=== PATIENT | female | born 1940 | race Caucasian/White ===

== ENCOUNTER 2017-09-27 20:48 | Emergency (ER) | payer MEDICARE, BC ==
[2017-09-27] MEDS ORDERED: KETOROLAC 30 MG/ML 1 ML VIAL IVP STA (21:35)
[2017-09-27] MEDS ORDERED: LIDOCAINE 5% PATCH TOPICAL STA (21:35)
[2017-09-27] MEDS ORDERED: methylPREDNISolone SOD SUCCI 125 MG/2 ML VIAL IV STA (21:35)
[2017-09-27] MEDS ORDERED: HYDROmorphone 0.5 MG/0.5 ML SYRINGE IVP STA (21:35)
[2017-09-27] MEDS ORDERED: METHOCARBAMOL 500 MG TAB PO STA (21:36)
--- NOTE | 2017-09-27 21:39 | ED ---
Extremity Problem HPI - General Chief complaint: Extremity Problem,Nontraumatic Stated complaint: Hip pain Time Seen by Provider: 09/27/17 21:16 Source: patient Mode of arrival: ambulatory Limitations: no limitations - History of Present Illness Initial comments: Patient is a 76-year-old female presenting for back pain and right pelvic pain. She states that she has a history of still has muscle dysfunction and that this pain is been present for the last 2 weeks. It is worsening over the last day and is worse with movement. It feels a burning sensation in her legs as well as some numbness in her toes. She denies any abdominal pain or nausea/ vomiting/diarrhea. She also denies any fevers or chills or citlaly urinary complaints. - Related Data Previous Rx's Medication Instructions Recorded Lidocaine 5% Patch [Lidoderm] 1 patch TOPICAL DAILY #5 patch 09/28/17 Methocarbamol [Robaxin] 500 mg PO TID #20 tab 09/28/17 predniSONE 50 mg PO DAILY #5 tablet 09/28/17 traMADol HCl [Ultram] 50 mg PO Q6HR PRN 3 Days #12 tab 09/28/17 Allergies Allergy/AdvReac Type Severity Reaction Status Date / Time codeine Allergy Unknown Verified 09/27/17 21:15 tetanus immune globulin Allergy Unknown Verified 09/27/17 21:15 Review of Systems ROS Statement: Those systems with pertinent positive or pertinent negative responses have been documented in the HPI. Constitutional: Negative for chills, fatigue and fever. HENT: Negative for congestion. Respiratory: Negative for chest tightness, shortness of breath and wheezing. Negative for cough Cardiovascular: Negative for chest pain and palpitations. Gastrointestinal: Negative for abdominal pain. Negative for abdominal distention , diarrhea, nausea and vomiting. Genitourinary: Negative for dysuria. Musculoskeletal: Positive for back pain and right leg pain, neck pain and neck stiffness. Skin: Negative for color change. Neurological: Negative for dizziness, speech difficulty, weakness and light- headedness. Psychiatric/Behavioral: Negative for agitation and confusion. Negative for anxiety ROS Other: All systems not noted in ROS Statement are negative. Past Medical History Past Medical History: Hypertension Additional Past Medical History / Comment(s): high lipids. CAD History of Any Multi-Drug Resistant Organisms: None Reported Past Surgical History: Section, Cholecystectomy Additional Past Surgical History / Comment(s): abdominal. uterine suspension Past Psychological History: No Psychological Hx Reported Smoking Status: Never smoker Past Alcohol Use History: Occasional Past Drug Use History: None Reported General Exam - General Exam Comments Initial Comments: Constitutional: Pt is oriented to person, place, and time. Pt appears well- developed and well-nourished. No distress. HENT: Head: Normocephalic and atraumatic. Eyes: EOM are normal. Neck: Normal range of motion. Neck supple. Cardiovascular: Normal rate, regular rhythm, S1 normal, S2 normal and normal heart sounds. Exam reveals no gallop and no friction rub. No murmur heard. Pulmonary/Chest: Effort normal and breath sounds normal. No tachypnea and no bradypnea. No respiratory distress. No wheezes or rales noted. Abdominal: Soft. Bowel sounds are normal. Pt exhibits no shifting dullness, no distension, no pulsatile liver, no fluid wave, no abdominal bruit and no ascites. There is no tenderness. There is no rigidity, no rebound, no guarding, no tenderness at McBurney's point and negative Pradhan's sign. Musculoskeletal: Normal range of motion. 5 out of 5 muscle strength in the lower extremities. No midline tenderness of the back. DTRs 2+ of the patellar tendons Neurological: Pt is alert and oriented to person, place, and time. No cranial nerve deficit. Skin: Skin is warm and dry. No rash noted. Pt is not diaphoretic. No erythema. No pallor. Psychiatric: Pt has a normal mood and affect. Pt behavior is normal. Thought content normal. Limitations: no limitations Course Vital Signs 09/27/17 21:10 Temperature 98.2 F Pulse Rate 94 Respiratory 16 Rate Blood Pressure 148/83 O2 Sat by Pulse 98 Oximetry Medical Decision Making - Medical Decision Making because no obvious trauma occurred, CT is not necessarily warranted. However, x -ray could be completed to rule out stress fractures. He was also advised that the patient's symptoms are likely secondary to disc pathology as she is having radicular symptoms. He was jointly decided that CT would not be performed because this is likely not show the needed information as to the etiology of the symptoms. However x-ray was completed and showed degenerative first-degree L4 through L5 spondylolisthesis. There is also a 6 mm retrolisthesis of L2 relation to L3 and 9 mm anterior subluxation of L4 relationship to L5. However , there were no neurologic deficits on physical exam and patient had 5 out of 5 muscle strength and therefore there is very low suspicion for emergent pathology such as cauda equina. Patient denied any numbness in the groin as well as bowel incontinence or urinary retention. Because of this, is felt that MRI was not emergently indicated. There is also no suspicion for renal calculi as there is no hematuria and symptoms are more consistent with lumbar radiculopathy. Patient was given multiple doses of pain medications and stated that the symptoms were significantly improved. Patient was also able to ambulate.Explained all labs and diagnostic test results and that we will discharge the patient home and patient is to follow up with PCP in 1-2 days and return to the ED if symptoms worsen. Pt is agreeable to plan. - Lab Data Result diagrams: 09/27/17 22:15 09/27/17 22:15 Lab Results 09/27/17 09/27/17 09/27/17 Range/Units 22:15 22:15 23:20 WBC 6.9 (3.8-10.6) k/uL RBC 4.58 (3.80-5.40) m/uL Hgb 13.6 (11.4-16.0) gm/dL Hct 40.0 (34.0-46.0) % MCV 87.4 (80.0-100.0) fL MCH 29.8 (25.0-35.0) pg MCHC 34.1 (31.0-37.0) g/dL RDW 14.0 (11.5-15.5) % Plt Count 186 (150-450) k/uL Neutrophils % 43 % Lymphocytes % 42 % Monocytes % 10 % Eosinophils % 2 % Basophils % 1 % Neutrophils # 2.9 (1.3-7.7) k/uL Lymphocytes # 2.9 (1.0-4.8) k/uL Monocytes # 0.7 (0-1.0) k/uL Eosinophils # 0.1 (0-0.7) k/uL Basophils # 0.1 (0-0.2) k/uL Sodium 140 (137-145) mmol/L Potassium 3.8 (3.5-5.1) mmol/L Chloride 103 (98-107) mmol/L Carbon Dioxide 25 (22-30) mmol/L Anion Gap 12 mmol/L BUN 19 H (7-17) mg/dL Creatinine 0.80 (0.52-1.04) mg/dL Est GFR (CKD-EPI)AfAm 82 (>60 ml/min/1.73 sqM) Est GFR (CKD-EPI)NonAf 72 (>60 ml/min/1.73 sqM) Glucose 102 H (74-99) mg/dL Calcium 9.6 (8.4-10.2) mg/dL Magnesium 1.8 (1.6-2.3) mg/dL Urine Color Light Yellow Urine Appearance Clear (Clear) Urine pH 6.0 (5.0-8.0) Ur Specific [place] 1.009 (1.001-1.035) Urine Protein Negative (Negative) Urine Glucose (UA) Negative (Negative) Urine Ketones Negative (Negative) Urine Blood Negative (Negative) Urine Nitrite Negative (Negative) Urine Bilirubin Negative (Negative) Urine Urobilinogen <2.0 (<2.0) mg/dL Ur Leukocyte Esterase Small H (Negative) Urine RBC 2 (0-5) /hpf Urine WBC 2 (0-5) /hpf Urine Mucus Rare H (None) /hpf Disposition Clinical Impression: Radiculopathy, Lumbar back pain Disposition: HOME SELF-CARE Condition: Good Instructions: Back Pain (ED) Prescriptions: Lidocaine 5% Patch [Lidoderm] 1 patch TOPICAL DAILY #5 patch Methocarbamol [Robaxin] 500 mg PO TID #20 tab predniSONE 50 mg PO DAILY #5 tablet traMADol HCl [Ultram] 50 mg PO Q6HR PRN 3 Days #12 tab PRN Reason: Pain Is patient prescribed a controlled substance at d/c from ED?: Yes If prescribed controlled substance>3 days was MAPS reviewed?: Prescribed <3 Days Referrals: Ken Rangel DO [Primary Care Provider] - 1-2 days Time of Disposition: 00:33
[2017-09-27 22:23] LABS: Basophils # (A) 0.1 k/uL (0-0.2); Basophils % (A) 1 %; Eosinophils # (A) 0.1 k/uL (0-0.7); Eosinophils % (A) 2 %; HGB 13.6 gm/dL (11.4-16.0); Lymphocytes # (A) 2.9 k/uL (1.0-4.8); Lymphocytes % (A) 42 %; MCH 29.8 pg (25.0-35.0); MCHC 34.1 g/dL (31.0-37.0); MCV 87.4 fL (80.0-100.0); Monocytes # (A) 0.7 k/uL (0-1.0); Monocytes % (A) 10 %; Neutrophils # (A) 2.9 k/uL (1.3-7.7); Neutrophils % (A) 43 %; Platelet Count 186 k/uL (150-450); RBC 4.58 m/uL (3.80-5.40); WBC 6.9 k/uL (3.8-10.6)
[2017-09-27 22:33] LABS: Calcium 9.6 mg/dL (8.4-10.2); Magnesium 1.8 mg/dL (1.6-2.3); Potassium 3.8 mmol/L (3.5-5.1)
[2017-09-27 23:31] LABS: Appearance,Urine Clear (Clear); Bilirubin,Urine Negative (Negative); Blood,Urine Negative (Negative); Color,Urine Light Yellow; Glucose,Urine (UA) Negative (Negative); Ketones,Urine Negative (Negative); Leukocyte Esterase,Urine Small (Negative); Mucus,Urine Rare /hpf; Nitrite,Urine Negative (Negative); Protein,Urine Negative (Negative); RBC,Urine 2 /hpf (0-5); Specific Gravity,Urine 1.009 (1.001-1.035); Urobilinogen,Urine <2.0 mg/dL (<2.0); WBC,Urine 2 /hpf (0-5)
--- NOTE | 2017-09-27 23:48 | XR ---
EXAMINATION TYPE: XR Hip Limited RT DATE OF EXAM: 09/27/2017 COMPARISON: NONE HISTORY: Right hip pain TECHNIQUE: 2 views FINDINGS: I see no fracture nor dislocation. Hip joint spaces fairly normal. There is minor spurring of the acetabulum. IMPRESSION: Mild spurring. Otherwise negative exam. No fracture.
--- NOTE | 2017-09-27 23:50 | XR ---
EXAMINATION TYPE: XR lumbar spine 2 or 3V DATE OF EXAM: 09/27/2017 COMPARISON: NONE HISTORY: Right hip pain TECHNIQUE: 3 views FINDINGS: There is no compression fracture. There is a 9 mm anterior subluxation of L4 in relation L5 . I see no spondylolysis. There is disc space narrowing throughout the lumbar spine. There is moderat e spurring of the endplates. Abdominal aorta is atheromatous. Sacroiliac joints appear intact. IMPRESSION: Multilevel spondylotic changes. Degenerative first-degree L4-5 spondylolisthesis. No acut e bony abnormality. 6 mm retrolisthesis of L2 in relation to L3.
[2017-09-28 01:01] VITALS: BP 145/67; PULSE 76; RESP 18; TEMP 97.8
== END 2017-09-28 01:03 | disposition home or self-care (01) ==
LOC: EC 20:48
DX: M54.16 Radiculopathy, lumbar region (principal); M43.16 Spondylolisthesis, lumbar region; M43.5X6 Other recurrent vertebral dislocation, lumbar region; Z88.5 Allergy status to narcotic agent; Z88.7 Allergy status to serum and vaccine
CPT/HCPCS: 36415; 80048; 83735; 85025; 81001; 72100; 73501; 99283; 96374; 96375 ×2; J2930; J1885; J1170

== ENCOUNTER 2018-09-09 08:53 | Day surgery (SDC) | payer MEDICARE, BC ==
[2018-09-07 09:46] VITALS: BMI 23.7
[2018-09-09] MEDS ORDERED: SODIUM CHLORIDE 0.9% 500 ML 500 ML IV ONE (09:07)
[2018-09-09 09:14] VITALS: RESP 16; TEMP 97.8
[2018-09-09] MEDS ORDERED: ACETAMINOPHEN TAB 500 MG TAB PO SCH (09:30)
[2018-09-09] MEDS ORDERED: fentaNYL (PF) 50 MCG/ML 2 ML AMP ONE (10:22)
[2018-09-09] MEDS: fentaNYL (PF) 50 MCG/ML 2 ML AMP IVP ONE ×2 (10:43→10:45)
[2018-09-09] MEDS: BENZOCAINE SPRAY 1 CAN MUCOUS MEM ONE ×2 (10:43→10:44)
[2018-09-09] MEDS: MIDAZOLAM (PF) 2 MG/2 ML VIAL IVP ONE ×2 (10:43→10:44)
[2018-09-09] MEDS ORDERED: traMADol 50 MG TAB PO PRN (10:59)
[2018-09-09] MEDS ORDERED: SODIUM CHLORIDE 0.9% 1,000 ML IV SCH (11:00)
--- NOTE | 2018-09-09 11:34 | ECHOT ---
TRANSESOPHAGEAL ECHOCARDIOGRAM INDICATION: Evaluation of mitral valve. PROCEDURE: After explaining the procedure to the patient, its risks and the complications, blood pressure, heart rate, O2 saturation was monitored. Her throat was sprayed with Cetacaine. She received 2 mg intravenous Versed, 50 mcg intravenous fentanyl. The probe was introduced in the esophagus without difficulty. Images were obtained. Following that, the probe was removed. There was no immediate complication. FINDINGS: Left atrial size is moderately dilated. Left atrial appendage is normal. Left ventricular size and systolic function normal. The aortic valve is a tricuspid valve and appears to be normal. Mitral valve revealed mitral valve prolapse of the posterior mitral valve leaflets with a P2 segment. The tricuspid valve is normal. Descending thoracic aorta appears to be normal. Contrast bubble study revealed no shunting across the interatrial septum. There was no pericardial effusion. Doppler pulse wave and color Doppler obtained revealed severe eccentric mitral regurgitation with mild to moderate tricuspid and mild aortic regurgitation. There was no shunting by color Doppler study. Trace pulmonic regurgitation was noted. CONCLUSION: 1. Dilated left atrium with normal appearance left atrial appendage. 2. Normal left ventricular size and systolic function. 3. Prolapse of the posterior mitral valve leaflets with a P2 segment with severe eccentric mitral regurgitation. 4. Mild to moderate tricuspid regurgitation. 5. Mild aortic with trace pulmonic regurgitation. 6. No pericardial effusion. 7. Normal appearance of the descending thoracic aorta. MMODL / IJN: [id number] /
[2018-09-09 12:31] VITALS: BP 128/75; PULSE 64
[2018-09-09] MEDS ORDERED: LOSARTAN-HCTZ 50-12.5 MG 1 EACH TAB PO SCH (15:00)
[2018-09-09] MEDS ORDERED: NON-FORMULARY DRUG (Aspirin [Adult Low Dose Aspirin Ec] 81 MG) PO SCH (15:00)
[2018-09-09] MEDS ORDERED: amLODIPine 5 MG TAB PO SCH (15:00)
[2018-09-09] MEDS ORDERED: METOPROLOL TARTRATE 25 MG TAB PO SCH (15:00)
[2018-09-09] MEDS ORDERED: NON-FORMULARY DRUG (Simvastatin 40 MG) PO SCH (21:00)
[2018-09-09] MEDS ORDERED: NON-FORMULARY DRUG (Vit C/E/Zn/Coppr/Lutein/Zeaxan [Preservision Areds 2 Softgel] 1 EACH) PO SCH (21:00)
[2018-09-09] MEDS ORDERED: NON-FORMULARY DRUG (Fish Oil/Dha/Epa [Fish Oil 1,200 Mg Fish Oil] 1 EACH) PO SCH (21:00)
== END 2018-09-09 12:23 | disposition home or self-care (01) ==
LOC: CATHCVL 08:53
PROVIDERS: ATTEND Internal Medicine Interventional Cardiology
DX: I08.3 Combined rheumatic disorders of mitral, aortic and tricuspid valves (principal); I25.10 Atherosclerotic heart disease of native coronary artery without angina pectoris; Z79.82 Long term (current) use of aspirin; Z79.899 Other long term (current) drug therapy; Z88.5 Allergy status to narcotic agent; Z88.7 Allergy status to serum and vaccine; F17.210 Nicotine dependence, cigarettes, uncomplicated
CPT/HCPCS: 93312; 93320; 93325

== ENCOUNTER 2018-10-19 20:56 | Emergency (ER) | payer MEDICARE, BC ==
[2018-10-19 22:12] LABS: Basophils # (A) 0.1 k/uL (0-0.2); Basophils % (A) 1 %; Eosinophils # (A) 0.2 k/uL (0-0.7); Eosinophils % (A) 3 %; HCT 41.7 % (34.0-46.0); HGB 14.3 gm/dL (11.4-16.0); Lymphocytes # (A) 3.6 k/uL (1.0-4.8); Lymphocytes % (A) 52 %; MCH 29.8 pg (25.0-35.0); MCHC 34.3 g/dL (31.0-37.0); MCV 86.7 fL (80.0-100.0); Mean Platelet Volume 8.1; Monocytes # (A) 0.5 k/uL (0-1.0); Monocytes % (A) 8 %; Neutrophils # (A) 2.3 k/uL (1.3-7.7); Neutrophils % (A) 33 %; Platelet Count 216 k/uL (150-450); RDW 12.6 % (11.5-15.5); WBC 6.9 k/uL (3.8-10.6)
[2018-10-19 22:14] VITALS: RESP 17
[2018-10-19 22:19] LABS: Albumin 4.1 g/dL (3.5-5.0); Calcium 9.8 mg/dL (8.4-10.2); Magnesium 1.8 mg/dL (1.6-2.3); Potassium 3.6 mmol/L (3.5-5.1); Total Bilirubin 0.4 mg/dL (0.2-1.3); Total Protein 6.3 g/dL (6.3-8.2)
[2018-10-19 22:21] LABS: Partial Thromboplastin Time 24.3 sec (22.0-30.0); Prothrombin Time 10.3 sec (9.0-12.0)
--- NOTE | 2018-10-19 22:52 | ED ---
SOB HPI - General Chief Complaint: Shortness of Breath Stated Complaint: SOB Time Seen by Provider: 10/19/18 21:14 Source: patient, family, RN notes reviewed Mode of arrival: wheelchair Limitations: no limitations - History of Present Illness Initial Comments: This is a 77-year-old female who presents with complaints of shortness of breath. She has any chest pain fevers chills sweats or other symptoms she believes she may have just become very anxious and does states she recently did have EKG showing atrial fibrillation. She denies any palpitations at this time no other symptoms reported at this time. No other modifying factors MD Complaint: shortness of breath - Related Data Home Medications Medication Instructions Recorded Confirmed Fish Oil/Dha/Epa [Fish Oil 1,200 1 cap PO HS 09/07/18 10/19/18 mg Fish Oil] Losartan/Hydrochlorothiazide 1 tab PO DAILY 09/07/18 10/19/18 [Hyzaar 50-12.5 Tablet] Metoprolol Tartrate [Lopressor] 25 mg PO BID 09/07/18 10/19/18 Vit C/E/Zn/Coppr/Lutein/Zeaxan 1 cap PO HS 09/07/18 10/19/18 [Preservision Areds 2 Softgel] amLODIPine [Norvasc] 5 mg PO DAILY 09/07/18 10/19/18 traMADol HCl [Ultram] 50 mg PO TID PRN 09/07/18 10/19/18 Apixaban [Eliquis] 5 mg PO BID 10/19/18 10/19/18 Atorvastatin [Lipitor] 40 mg PO HS 10/19/18 10/19/18 Allergies Allergy/AdvReac Type Severity Reaction Status Date / Time codeine Allergy Severe Abdominal Verified 10/19/18 21:20 Pain tetanus immune globulin Allergy Severe Swelling Verified 10/19/18 21:20 of whole arm Review of Systems ROS Statement: Those systems with pertinent positive or pertinent negative responses have been documented in the HPI. ROS Other: All systems not noted in ROS Statement are negative. Past Medical History Past Medical History: Atrial Fibrillation, Coronary Artery Disease (CAD), Cancer, GERD/Reflux, Hyperlipidemia, Hypertension, Osteoarthritis (OA) Additional Past Medical History / Comment(s): heart murmer, varicose veins, hx ulcer,hx hiatal hernia, degenerative disks, scoliosis, spinal stenosis, hx skin cancer History of Any Multi-Drug Resistant Organisms: None Reported Past Surgical History: Section, Cholecystectomy, Heart Catheterization With Stent Additional Past Surgical History / Comment(s): one cardiac stent, cystocele/rectocele/uterine suspension surgery, cataracts tiffanie, abdominal lipectomy Past Anesthesia/Blood Transfusion Reactions: No Reported Reaction Date of Last Stent Placement:: 2006 Past Psychological History: No Psychological Hx Reported Smoking Status: Former smoker Past Alcohol Use History: Occasional Past Drug Use History: None Reported - Past Family History Mother Family Medical History: No Reported History General Exam - General Exam Comments Initial Comments: This is a well-developed well-nourished awake alert oriented 3 female Limitations: no limitations General appearance: alert, anxious Head exam: Present: atraumatic, normocephalic, normal inspection Eye exam: Present: normal appearance, PERRL, EOMI. Absent: scleral icterus, conjunctival injection, periorbital swelling ENT exam: Present: normal exam, mucous membranes moist Neck exam: Present: normal inspection. Absent: tenderness, meningismus, lymphadenopathy Respiratory exam: Present: normal lung sounds bilaterally. Absent: respiratory distress, wheezes, rales, rhonchi, stridor Cardiovascular Exam: Present: regular rate, normal rhythm, normal heart sounds. Absent: systolic murmur, diastolic murmur, rubs, gallop, clicks GI/Abdominal exam: Present: soft, normal bowel sounds. Absent: distended, tenderness, guarding, rebound, rigid Extremities exam: Present: normal inspection, full ROM, normal capillary refill. Absent: tenderness, pedal edema, joint swelling, calf tenderness Back exam: Present: normal inspection Neurological exam: Present: alert, oriented X3, CN II-XII intact Psychiatric exam: Present: normal affect, normal mood Skin exam: Present: warm, dry, intact, normal color. Absent: rash Course Vital Signs 10/19/18 10/19/18 10/19/18 21:03 21:40 22:10 Temperature 98 F Pulse Rate 89 71 68 Respiratory 18 19 17 Rate Blood Pressure 137/71 105/75 126/65 O2 Sat by Pulse 97 95 96 Oximetry Medical Decision Making - Medical Decision Making Patient is feeling much improved this time the presentation is consistent with anxiety reaction. Patient will be discharged - Lab Data Result diagrams: 10/19/18 22:02 10/19/18 22:02 Lab Results 10/19/18 10/19/18 10/19/18 Range/Units 22:02 22:02 22:02 WBC 6.9 (3.8-10.6) k/uL RBC 4.80 (3.80-5.40) m/uL Hgb 14.3 (11.4-16.0) gm/dL Hct 41.7 (34.0-46.0) % MCV 86.7 (80.0-100.0) fL MCH 29.8 (25.0-35.0) pg MCHC 34.3 (31.0-37.0) g/dL RDW 12.6 (11.5-15.5) % Plt Count 216 (150-450) k/uL Neutrophils % 33 % Lymphocytes % 52 % Monocytes % 8 % Eosinophils % 3 % Basophils % 1 % Neutrophils # 2.3 (1.3-7.7) k/uL Lymphocytes # 3.6 (1.0-4.8) k/uL Monocytes # 0.5 (0-1.0) k/uL Eosinophils # 0.2 (0-0.7) k/uL Basophils # 0.1 (0-0.2) k/uL PT (9.0-12.0) sec INR (<1.2) APTT (22.0-30.0) sec Sodium 142 (137-145) mmol/L Potassium 3.6 (3.5-5.1) mmol/L Chloride 105 (98-107) mmol/L Carbon Dioxide 30 (22-30) mmol/L Anion Gap 7 mmol/L BUN 17 (7-17) mg/dL Creatinine 0.82 (0.52-1.04) mg/dL Est GFR (CKD-EPI)AfAm 79 (>60 ml/min/1.73 sqM) Est GFR (CKD-EPI)NonAf 69 (>60 ml/min/1.73 sqM) Glucose 98 (74-99) mg/dL Calcium 9.8 (8.4-10.2) mg/dL Magnesium 1.8 (1.6-2.3) mg/dL Total Bilirubin 0.4 (0.2-1.3) mg/dL AST 18 (14-36) U/L ALT 17 (9-52) U/L Alkaline Phosphatase 70 (38-126) U/L Troponin I (0.000-0.034) ng/mL NT-Pro-B Natriuret Pep 310 pg/mL Total Protein 6.3 (6.3-8.2) g/dL Albumin 4.1 (3.5-5.0) g/dL 10/19/18 10/19/18 Range/Units 22:02 22:02 WBC (3.8-10.6) k/uL RBC (3.80-5.40) m/uL Hgb (11.4-16.0) gm/dL Hct (34.0-46.0) % MCV (80.0-100.0) fL MCH (25.0-35.0) pg MCHC (31.0-37.0) g/dL RDW (11.5-15.5) % Plt Count (150-450) k/uL Neutrophils % % Lymphocytes % % Monocytes % % Eosinophils % % Basophils % % Neutrophils # (1.3-7.7) k/uL Lymphocytes # (1.0-4.8) k/uL Monocytes # (0-1.0) k/uL Eosinophils # (0-0.7) k/uL Basophils # (0-0.2) k/uL PT 10.3 (9.0-12.0) sec INR 1.0 (<1.2) APTT 24.3 (22.0-30.0) sec Sodium (137-145) mmol/L Potassium (3.5-5.1) mmol/L Chloride (98-107) mmol/L Carbon Dioxide (22-30) mmol/L Anion Gap mmol/L BUN (7-17) mg/dL Creatinine (0.52-1.04) mg/dL Est GFR (CKD-EPI)AfAm (>60 ml/min/1.73 sqM) Est GFR (CKD-EPI)NonAf (>60 ml/min/1.73 sqM) Glucose (74-99) mg/dL Calcium (8.4-10.2) mg/dL Magnesium (1.6-2.3) mg/dL Total Bilirubin (0.2-1.3) mg/dL AST (14-36) U/L ALT (9-52) U/L Alkaline Phosphatase (38-126) U/L Troponin I <0.012 (0.000-0.034) ng/mL NT-Pro-B Natriuret Pep pg/mL Total Protein (6.3-8.2) g/dL Albumin (3.5-5.0) g/dL - EKG Data -: EKG Interpreted by Me EKG shows normal: sinus rhythm (Sinus rhythm a 75 ME interval 158 QRS 78 QT since QTC 404/[address] configuration this is compared with previous EKGs which did show atrial fibrillation) - Radiology Data Radiology results: report reviewed (I did review the imaging and report no acute findings.), image reviewed Disposition Clinical Impression: Dyspnea, Anxiety Disposition: HOME SELF-CARE Condition: Good Instructions (If sedation given, give patient instructions): Dyspnea (ED), Anxiety (ED) Is patient prescribed a controlled substance at d/c from ED?: No Referrals: Ken Rangel DO [Primary Care Provider] - 1-2 days
[2018-10-19 23:04] VITALS: BP 118/69; PULSE 63; TEMP 98.6
--- NOTE | 2018-10-20 06:15 | XR ---
EXAM: XR Chest, 2 Views CLINICAL HISTORY: difficulty breathing TECHNIQUE: Frontal and lateral views of the chest. COMPARISON: No relevant prior studies available. FINDINGS: Lungs: Unremarkable. No consolidation. Pleural space: No pleural effusions. No pneumothorax. Heart: Unremarkable. No cardiomegaly. Mediastinum: Unremarkable. Bones/joints: Multilevel degenerative changes are seen involving the thoracic spine with associated anterior bridging osteophytes. Osteopenia. Vasculature: Mildly tortuous descending intrathoracic aorta. IMPRESSION: No radiographic evidence of acute cardiopulmonary process.
== END 2018-10-19 23:04 | disposition home or self-care (01) ==
LOC: EC 20:56
DX: F41.9 Anxiety disorder, unspecified (principal); R06.00 Dyspnea, unspecified; I48.91 Unspecified atrial fibrillation; I25.10 Atherosclerotic heart disease of native coronary artery without angina pectoris; E78.5 Hyperlipidemia, unspecified; I10 Essential (primary) hypertension; Z87.19 Personal history of other diseases of the digestive system; Z85.828 Personal history of other malignant neoplasm of skin; Z87.891 Personal history of nicotine dependence; Z90.49 Acquired absence of other specified parts of digestive tract; Z95.5 Presence of coronary angioplasty implant and graft; Z98.890 Other specified postprocedural states; Z79.01 Long term (current) use of anticoagulants; Z79.899 Other long term (current) drug therapy; Z88.5 Allergy status to narcotic agent; Z88.7 Allergy status to serum and vaccine
CPT/HCPCS: 36415; 71046; 80053; 83735; 83880; 84484; 85025; 85610; 85730; 93005; 99285

== ENCOUNTER → 2018-12-15 | Outpatient (CLI) | payer MEDICARE, BC ==
--- NOTE | 2018-12-15 09:13 | US ---
EXAMINATION TYPE: US carotid duplex BILAT DATE OF EXAM: 12/15/2018 COMPARISON: NONE CLINICAL HISTORY: R06.02 SOB pre op testing for Valve replacement and CABG . Mitral valve prolapse, CAD EXAM MEASUREMENTS: RIGHT: Peak Systolic Velocity (PSV) cm/sec ----- Right CCA: 46.7 ----- Right ICA: 59.3 ----- Right ECA: 75.2 ICA/CCA ratio: 1.3 RIGHT: End Diastole cm/sec ----- Right CCA: 20.7 ----- Right ICA: 20.7 ----- Right ECA: 10.7 LEFT: Peak Systolic Velocity (PSV) cm/sec ----- Left CCA: 58.5 ----- Left ICA: 68.1 ----- Left ECA: 42.3 ICA/CCA ratio: 1.2 LEFT: End Diastole cm/sec ----- Left CCA: 15.1 ----- Left ICA: 20.3 ----- Left ECA: 6.3 VERTEBRALS (direction of flow): Right Vertebral: Antegrade Left Vertebral: Antegrade Rhythm: Arrhythmia Moderate intimal wall changes are noted at bilateral carotid bifurcation, but PSV is wnl bilaterally. IMPRESSION: 1. Moderate intimal wall thickening. With no evidence of significant hemodynamic stenosis bilaterally . Criteria for Assigning % of Stenosis / Diameter reduction (Estimation based on the indirect measurements of the internal carotid artery velocities (ICA PSV). 1. Normal (no stenosis)=ICA PSV < 125 cm/s: ratio < 2.0: ICA EDV<40 cm/s. 2. Less than 50% stenosis=ICA PSV < 125 cm/s: ratio < 2.0: ICA EDV<40 cm/s. 3. 50 to 69% stenosis=ICA PSV of 125 to 230 cm/s: ration 2.0 ? 4.0: ICA EDV 40-100 cm/s. 4. Greater than 70% stenosis to near occlusion= ICA PSV > 230 cm/s: ratio > 4.0: ICA EDV > 100 cm/s. 5. Near occlusion= ICA PSV velocities may be low or undetectable: variable ratio and ICA EDV. 6. Total occlusion=unable to detect flow.
== END | disposition home or self-care (01) ==
LOC: RADUSMAIN 08:15
PROVIDERS: ATTEND Thoracic Surgery (Cardiothoracic Vascular Surgery)
DX: I38 Endocarditis, valve unspecified (principal)
CPT/HCPCS: 93880; 94060; 94726; 94729

== ENCOUNTER → 2019-09-27 | Outpatient (CLI) | payer MEDICARE, BC ==
--- NOTE | 2019-09-27 09:47 | XR ---
EXAM TYPE: LUMBAR SPINE X RAY SERIES COMPARISON: 09/27/2017 HISTORY: Pain TECHNIQUE: 4 views are submitted. FINDINGS: Postsurgical changes are seen extending from L2 through S1 with grade 1 anterolisthesis L4-L5. Diffus e osteopenia. Multilevel hypertrophic spurring anteriorly and degenerative disc disease. Atherosclero tic change of the vasculature. IMPRESSION: 1. Postsurgical changes with grade 1 anterolisthesis L4 on L5.
== END | disposition home or self-care (01) ==
LOC: RADXRYALE 09:08
PROVIDERS: ATTEND Internal Medicine
DX: M43.16 Spondylolisthesis, lumbar region (principal); M54.17 Radiculopathy, lumbosacral region; Z98.890 Other specified postprocedural states
CPT/HCPCS: 72110